=== PATIENT | female | born 1970 | race Caucasian/White ===

== ENCOUNTER 2024-02-13 08:25 | Day surgery (SDC) | payer MEDICARE, MEDICAID ==
[~2024-02-13] VITALS: Ht 162.6 cm; Wt 72.1 kg
[~2024-02-13 08:25] MED LIST: ACETAMINOPHEN325 MG PO; B121000 MC1 PO; D350 MCG PO; DULOXETINE HCL60 MG PO; DYANAVEL PO; IBUPROFEN200 MG PO; PRAMIPEXOLE DI0.5 MG PO; TRAZODONE50 MG PO
[2024-02-13] MEDS ORDERED: LACTATED RINGER'S 1,000 ML IV ONE (08:28)
[2024-02-13 10:18] VITALS: BP 131/88
[2024-02-13] MEDS ORDERED: GLYCOPYRROLATE 0.2 MG/ML IV ONE (15:53)
[2024-02-13] MEDS ORDERED: LIDOCAINE HCL 2% 2ML SDV IV ONE (15:53)
[2024-02-13] MEDS ORDERED: PROPOFOL 200 MG/20 ML VIAL IV ONE (15:53)
== END 2024-02-13 10:40 | disposition home or self-care (01) ==
LOC: ENDO 08:25
PROVIDERS: ATTEND Surgery
PROC: 0DJD8ZZ Inspection of Lower Intestinal Tract, Via Natural or Artificial Opening Endoscopic (ICD-10-PCS; principal; 2024-02-13)
DX: Z12.11 Encounter for screening for malignant neoplasm of colon (principal); K64.4 Residual hemorrhoidal skin tags; I10 Essential (primary) hypertension; G35 Multiple sclerosis; F32.A Depression, unspecified
CPT/HCPCS: G0121; J1596